=== PATIENT | female | born 1965 | race Caucasian/White ===

== ENCOUNTER 2021-04-22 09:43 | Emergency (ER) | payer OTHER ==
[~2021-04-22 09:43] MED LIST: NAPROSYN500 MG PO
[2021-04-22] MEDS ORDERED: NAPROXEN500 MG PO (12:10)
== END 2021-04-22 12:14 | disposition home or self-care (01) ==
LOC: FER 09:43
DX: S60.221A Contusion of right hand, initial encounter (principal); S40.011A Contusion of right shoulder, initial encounter; F17.210 Nicotine dependence, cigarettes, uncomplicated; V43.52XA Car driver injured in collision with other type car in traffic accident, initial encounter; Y92.410 Unspecified street and highway as the place of occurrence of the external cause
CPT/HCPCS: 72040; 72100; 73130